=== PATIENT | male | born 1965 | race Caucasian/White ===

== ENCOUNTER 2017-08-12 08:28 | Inpatient (IN) | payer BC ==
[2017-08-12] MEDS ORDERED: Adenosine 6 MG/2 ML VIAL ONE (08:37)
[2017-08-12 09:17] LABS: PTT 25.3 SEC (22.9-36.1); Prothrombin Time 12.4 SEC (12.0-14.7)
[2017-08-12] MEDS ORDERED: Aspirin 325 MG TAB ONE (09:26)
[2017-08-12 09:27] LABS: ALT (SGPT) 58 U/L (8-55); AST (SGOT) 38 U/L (5-34); Alkaline Phosphatase 45 U/L (40-150); Anion Gap 17 mmol/L (10-20); BUN (Urea Nitrogen) 18 mg/dL (8.4-25.7); Bilirubin, Total 0.5 mg/dL (0.2-1.2); CK (CPK) 116 U/L (30-200); Calc. Creatinine Clearance 0 mL/min (70-130); Calcium 10.7 mg/dL (7.8-10.44); Carbon Dioxide 25 mmol/L (22-29); Chloride 101 mmol/L (98-107); Estimated GFR-MDRD 72; Globulin 3.8 g/dL (2.4-3.5); Protein, Total 8.3 g/dL (6.0-8.3)
[2017-08-12 09:29] LABS: Troponin I 0.032 ng/mL (< 0.028)
--- NOTE | 2017-08-12 09:29 | RAD ---
SINGLE VIEW OF THE CHEST: Comparison: None. History: Chest pain, lightheadedness. FINDINGS: Single view of the chest shows a normal sized cardiomediastinal silhouette. There is no evidence of consolidation, mass, or pleural effusion. The bones are unremarkable. IMPRESSION: No evidence of acute cardiopulmonary disease. POS: [facility]
[2017-08-12 09:31] LABS: Hematocrit 44.3 % (42.0-52.0); Mean Platelet Volume 6.7 fL (7.4-10.4); Red Blood Cell (RBC) Count 4.36 mill/uL (4.70-6.10); White Blood Cell (WBC) Count 9.8 thou/uL (4.8-10.8)
[2017-08-12 09:34] LABS: #Basophils 0.2 thou/uL (0.0-0.2); #Eosinphils 0.1 thou/uL (0.0-0.7); #Monocytes 0.4 thou/uL (0.11-0.59); #Neutrophils 7.1 thou/uL (1.40-6.50); %Basophils 1.7 % (0.0-1.0); %Eosinophils 1.3 % (0.0-10.0); %Monocytes 4.4 % (0.0-10.0); Macrocytosis SLIGHT = 6-15 cells (100X) (0-5/hpf)
[2017-08-12 12:51] LABS: Troponin I 0.558 ng/mL (< 0.028)
[2017-08-12 13:05] VITALS: BMI 28.1
[2017-08-12] MEDS ORDERED: Acetaminophen 325 MG TAB PO PRN (14:35)
[2017-08-12] MEDS ORDERED: Lorazepam 1 MG TAB PO PRN (14:35)
[2017-08-12] MEDS ORDERED: Labetalol HCl 100 MG/20 ML VIAL SLOW IVP PRN (14:35)
[2017-08-12] MEDS ORDERED: Milk Of Magnesia 30 ML UDCUP PO PRN (14:35)
[2017-08-12] MEDS ORDERED: Mag-Al 1200 mg/1200 mg/30 ML UDCUP PO PRN (14:35)
[2017-08-12 15:41] LABS: Troponin I 1.123 ng/mL (< 0.028)
[2017-08-12] MEDS ORDERED: Nitroglycerin 2% Ointment 1 INCH/1 GM Packet TOP SCH (18:00)
--- NOTE | 2017-08-12 20:17 | HP ---
PRIMARY CARE PHYSICIAN: Kenyon Yuan M.D. CHIEF COMPLAINT: Feeling dizzy and sweating. HISTORY OF PRESET ILLNESS: Mr. Shaver is a pleasant 52-year-old gentleman that has a history of hyp ertension. He was in his usual state of health until yesterday. He says that when he got up in the morning, he felt dizzy, sweaty, and little bit lightheaded. He says that he laid down and put a co ld rag over his head and says after about 5 or 10 minutes, the feeling subsided and he says then he got up, got dressed and went to work and had no other problems. He says then again this morning whe n he woke up, he once again felt dizzy and a bit lightheaded and felt like his heart was racing. He said he did the same thing, he laid down and tried to be still for a while; however, the feeling craig bsided, but did not go away completely. He went ahead and got dressed and went to work, however. Danni dent says that when he got to work, he was feeling bad and his symptoms got progressively worse and wor se. He went to see the nurse on duty, but she was not there. He says that he began feeling like he was going to pass out, so he drove himself home and he says that he and sounds like his went t o the [facility]. He says that his blood pressure was undetectable, so they sent him t o the [facility] emergency room in [place]. There they did an EKG and found that his heart rate was around 220. They gave him \\\\"some of medication which was adenosine\\\\" and says that after that he began to feel much better and in fact now, he feels back to his normal self. During this t veronica, he did complain of some tightness in his chest and some soreness and numbness in his left arm. He denies having any shortness of breath, no nausea, or vomiting. He says that the episode today l asted about 3 hours. It is started about 5 a.m. when he got up and continued until about 8 a.m. in the morning. REVIEW OF SYSTEM: Constitutional: There has been no fever, chills, no night sweats, no weight loss . HEENT: He has had no headache, but he has had dizziness. No visual changes, no sore throat, rhi norrhea, neck pain, no adenopathy. Pulmonary: No hemoptysis, no cough, no wheezing. Cardiovascula r: As the history of present illness. Gastrointestinal: No abdominal pain, no nausea, no vomiting , no change in bowels. Genitourinary: No urinary frequency, hematuria, no hesitancy. Neurologic: No focal weakness, numbness, no seizures. Psychiatric: No symptoms of anxiety or depression. Ski n and Integument: No skin changes. No rash. PAST MEDICAL HISTORY: Significant for hypertension. PAST SURGICAL HISTORY: Negative. ALLERGIES: No known drug allergies. FAMILY HISTORY: He says his father has everything \\\\"including heart disease, diabetes mellitus and cerebrovascular disease.\\\\" SOCIAL HISTORY: He says he drinks anywhere from 5 to 8 beers a day. He smokes 2 packs a day since he was 19 and therefore, it has been 30 years. He is and has 3 children. MEDICATIONS: Include metoprolol extended release 50 mg daily and hydrochlorothiazide 25 mg a day. PHYSICAL EXAMINATION: GENERAL: Currently he is alert and oriented. He appears to be in no acute distress. VITAL SIGNS: Blood pressure is 175/97, heart rate 64, respiratory rate of 18, temperature is 97.8. HEENT: Pupils are equal, round, and reactive. Extraocular muscles are intact. Sclerae are anicter ic. Throat: No erythema, no exudates. NECK: No adenopathy, no bruits. LUNGS: Clear to auscultation. There was no wheezing, no rales. CARDIOVASCULAR: He has a normal S1 and S2. There is no S3 or S4. No murmurs, clicks, no rubs. ABDOMEN: Soft, nontender, nondistended. Positive for bowel sound. There is no rebound or guarding . EXTREMITIES: There is no clubbing, cyanosis, no edema. NEUROLOGIC: Nonfocal. LABORATORY RESULTS: White blood cell count is 9.8, hemoglobin 16, hematocrit is 44.3, platelet coun t is 252. INR 0.9. Sodium 138, potassium 4.5, chloride is 101, CO2 is 25, BUN is 18, creatinine 1. 08, glucose is 151, calcium is 10.7. AST is 38, ALT is 58, and troponin is 0.032 initially and then 0.558. IMAGING: EKG initially was appeared to be sinus tachycardia at the rate of 220; after adenosine was given, his EKG with atrial fibrillation with a heart rate of 155. He was placed on Cardizem for a short while and is now sinus rhythm at the rate of 68 and he has some nonspecific ST wave changes. ASSESSMENT: 1. This is a 52-year-old gentleman that presented to the emergency room with dizziness and sweating as well as some chest tightness. He was found to be initially supraventricular tachycardia and then atrial fibrillation. It also noted that he has elevated troponin which is more than quadruple sinc e his admission. Due to the patient's heavy smoking history and he also has another risk factor inc luding family history and the fact that he is a male over 50, it is possible that this could be an a cute coronary syndrome resulting into the arrhythmia or it could be that the patient has a primary a rrhythmia and causing a demand ischemia; however, at this point it is impossible to tell. He will b e admitted and started on nitrates as well as aspirin and will place him on low dose beta analilia. Cardiology will be consulted to determine the etiology of his heart disease. I suspect he will need an echo possibly cardiac catheterization as well. 2. For his tobacco abuse, he has been instructed briefly on smoking cessation. I offered Wellbutri n; however, he refused this and says he can take care of this on his own. Given the fact that he is possibly in an acute coronary syndrome, we will hold off on nicotine replacement at this time. 3. The patient's blood pressure is uncontrolled. It is unclear whether or not his current blood pr essure medication is sufficient. We will continue to monitor his trend and we likely may need to ad d an additional antihypertensive as well.
--- NOTE | 2017-08-12 20:24 | CON ---
DATE OF CONSULTATION: 08/12/2017 REASON FOR CONSULTATION: Tachycardia, increased troponin level. HISTORY OF PRESENT ILLNESS: Mr. Ashkan Shaver is a gentleman who has been having lightheaded episode s for 2 days. Yesterday, he felt lightheaded for a relatively prolonged time at rest, but that reso lved, but today he noticed when he tried to get up and around, he felt extremely lightheaded. He we nt ahead and went to work and he went to go see the nurse, but she was not there. [facility] There his blood pressure was slow, they could not measure it and his hea rt rate was so fast, it could be counted. He was sent to the emergency room where his heart rate wa s 220 beats a minute. He was given adenosine intravenously which has slowed down the rate and looke d like it probably atrial flutter with 1:1 conduction. The heart rate went up at least 240 beats a minute and later converted to sinus rhythm but did have some transient atrial fibrillation as well. The patient is currently asymptomatic, doing well. The patient states he wants to go home now. He did not have chest pain or tightness with this. PAST MEDICAL HISTORY: Negative for any cardiac problems other than high blood pressure. Otherwise, the patient has been active and healthy, continuing to work. MEDICATIONS: In home including hydrochlorothiazide 25 mg a day, metoprolol XL 50 mg a day. Patient does continue to smoke as mentioned. SOCIAL HISTORY: Positive for smoking. FAMILY HISTORY: Father had heart disease and coronary disease at a relatively young age. REVIEW OF SYSTEMS: CONSTITUTIONAL: No significant weight gain or loss. VISION: No changes. HEARING: No changes. PULMONARY: No cough or wheezing. GASTROINTESTINAL: No nausea, vomiting, diarrhea. SKIN: No rashes. NEUROLOGIC: No unilateral weakness or numbness. PSYCHIATRIC: No unusual depression or anxiety. HEMATOLOGIC: No unusual bruising. GENITOURINARY: No burning with urination. PHYSICAL EXAMINATION: GENERAL: He is a pleasant, healthy appearing middle-aged man, in no distress, wants to go home. VITAL SIGNS: Blood pressure high 194/95, pulse 58 regular. LUNGS: He has some expiratory wheezing. CARDIAC: Normal S1, normal S2. ABDOMEN: Soft, nontender. EXTREMITIES: No clubbing or cyanosis. There is no edema. PERTINENT LABORATORY: Creatinine is normal. Troponin went to a 0.032 to 0.558 to 1.123. EKGs revealed narrow complex tachycardia, one with rate of 220, but it accelerates up to 240 at one time, later he had some atrial fibrillation with a rate of 140. ASSESSMENT: 1. Supraventricular tachycardia, possibly atrial flutter. 2. Paroxysmal atrial fibrillation. 3. Echo is normal. 4. Hypertension. PLAN: 1. Consulted Dr. Brownlee, consideration for an ablation. 2. We will hold off on beta-blockers due to the wheezing. 3. Stress testing to be done, hopefully done tomorrow morning. Hopefully, he can still have the fl utter ablation in the afternoon.
[2017-08-12] MEDS ORDERED: Metoprolol Tartrate 25 MG TAB PO SCH (21:00)
[2017-08-12] MEDS: Nitroglycerin 2% Ointment 1 INCH/1 GM Packet TOP SCH (21:09)
--- NOTE | 2017-08-13 06:02 | CON ---
DATE OF CONSULTATION: 08/12/2017 ELECTROPHYSIOLOGY CONSULTATION REPORT REFERRING PHYSICIAN: Kurtis Young M.D. I am seeing Mr. Shaver at our [facility] telemetry floor as an electrophysiology professional housing consultant. His problems are: 1. Presentation with rapid narrow complex tachycardia with adenosine response consistent with typical atrial flutter with intermittent 1:1 conduction. A. Short run of atrial fibrillation also seen with subsequent conversion to sinus rhythm. 2. A 2D echo from 08/12/2017 reveals LVEF 50 to 55%. 3. Elevated troponin up to 1.123 noted. 4. Coronary artery risk factors. A. History of smoking. ALLERGIES: None noted. MEDICATIONS: At home including hydrochlorothiazide, metoprolol succinate 50 mg daily. SUBJECTIVE: Mr. Shaver is here with severe dizziness, lightheadedness near syncope, extreme weakness. In the ER, he was evaluated and found to be in a rapid narrow complex tachycardia, adenosine since I just slowed him down and then the tachycardia recurred and underlying flutter waves were observed during adenosine administration. He also did convert to atrial fibrillation, but eventually, then the rhythm was terminated. He does not have bleeding issues, no true angina-like symptoms. No fevers, chills, cough, rest of the 12-point review of systems unremarkable. PAST MEDICAL HISTORY: As above. No prior history of heart disease or heart attacks. He was treated for hypertension though. SOCIAL HISTORY: The patient is a smoker. He denies ETOH or drug use. 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 FAMILY HISTORY: Noncontributory. OBJECTIVE DATA: VITAL SIGNS: Blood pressure is markedly hypertensive, initially 159/120 mostly it is about 191/105. GENERAL: He is an alert and oriented man in no apparent distress. NECK: Supple. Jugular veins not distended. CHEST: Coarse without crackles. CARDIOVASCULAR: Heart sounds are regular to rate and rhythm. No murmur or gallop. ABDOMEN: Benign. Bowel sounds positive. EXTREMITIES: Lower extremities without edema, clubbing or cyanosis. Pulses are adequate. NEUROLOGIC: The patient is nonfocal. MUSCULOSKELETAL: No joint swelling or deformities. SKIN: Without rash. DATABASE: The initial presenting EKG is a rapid narrow complex SVT at rate of 218 beats per minute. Underlying flutter waves are visible. ST depression is seen in the inferolateral leads. Subsequent EKG and rhythm strips during adenosine reveal slowing of the heart rates with underlying flutter waves, which is likely typical in morphology noted after 6 mg of adenosine. The atrial flutter becomes 2:1, and then rapid rate occurs in 1:1 conduction. Variable heart rates are seen. There is an EKG with variable AV conduction with possible underlying flutter wave still present, cannot rule out atrial fibrillation at this time. The fourth EKG reveals sinus rhythm with rate of 68 beats per minute with nonspecific ST-T changes. LABORATORY DATA: Sodium 138, potassium 4.5, BUN 18, creatinine is 1.08. AST and ALT is 38 and 58. Troponin I is 0.32, 0.558 and 1.123. Globulin is 3.8. White count is 9.8, hemoglobin 16, platelet count is 252. ASSESSMENT AND PLAN: Mr. Shaver is a 52-year-old man with a prior history of heart disease who presented with lightheadedness, dizziness, and EKG was suggestive of atrial flutter with possible 1:1 atrioventricular conduction. He is now back in sinus rhythm and feeling better. He had a troponin bumped at 1.23, which is likely due to the fasting rapid heart rates sustaining over multiple hours. 1. I discussed the potential treatment options with him. We discussed the options for rhythm medication, rate controlling medications, but he would prefer more definitive treatment of his atrial flutter. Cavotricuspid isthmus ablation procedure, risks, benefits were all detailed to him. We also discussed the potential chance for additional flutter circuits in which case was still might use some medical therapy versus pulmonary venous isolation procedure could be considered as well. He understands and willing to proceed. 2. Hypertension markedly elevated, likely initiate FELI inhibitors, possible beta analilia therapy. 3. For now, hold off anticoagulation with recurrent atrial flutter is seen, consider anticoagulation as well. On the other hand, his CHADS VASC score so far is zero. 4. Elevated troponin likely related to the demand ischemia with rapid heart rates, further evaluation as per Dr. Young. We discussed the case with the patient, nurse, and Dr. Young. RADHA
[2017-08-13 06:25] LABS: Anion Gap 12 mmol/L (10-20); BUN (Urea Nitrogen) 22 mg/dL (8.4-25.7); Calc. Creatinine Clearance 115 mL/min (70-130); Calcium 9.7 mg/dL (7.8-10.44); Carbon Dioxide 28 mmol/L (22-29); Chloride 102 mmol/L (98-107); Cholesterol 238 mg/dl (< 200 Desired); Estimated GFR-MDRD 80; LDL Cholesterol, Calculated 144 mg/dL
[2017-08-13 06:32] LABS: #Basophils 0.1 thou/uL (0.0-0.2); #Eosinphils 0.2 thou/uL (0.0-0.7); #Lymphocytes 1.7 thou/uL (1.20-3.40); #Monocytes 0.9 thou/uL (0.11-0.59); %Basophils 0.9 % (0.0-1.0); %Eosinophils 3.2 % (0.0-10.0); %Lymphocytes 21.5 % (21.0-51.0); %Monocytes 10.9 % (0.0-10.0); Hematocrit 42.4 % (42.0-52.0); Mean Platelet Volume 7.3 fL (7.4-10.4); Red Blood Cell (RBC) Count 3.94 mill/uL (4.70-6.10); White Blood Cell (WBC) Count 7.8 thou/uL (4.8-10.8)
[2017-08-13 06:44] LABS: Macrocytosis MODERATE=16-30 cells (100X) (0-5/hpf)
[2017-08-13] MEDS ORDERED: Sodium Chloride 0.9% 10 ML ONE (07:18)
[2017-08-13] MEDS: Nitroglycerin 2% Ointment 1 INCH/1 GM Packet TOP SCH ×2 (07:18→14:58)
[2017-08-13] MEDS ORDERED: Enoxaparin Sodium 40 MG/0.4 ML SYRINGE SC SCH (09:00)
[2017-08-13] MEDS ORDERED: Midazolam HCl 2 mg/2 ml Vial ONE ×2 (09:02→09:20)
[2017-08-13] MEDS ORDERED: Fentanyl 100 MCG/2 ML VIAL ONE (09:04)
[2017-08-13] MEDS ORDERED: Heparin 10,000 UNITS/1 ML VIAL ONE (09:07)
[2017-08-13] MEDS ORDERED: Dexamethasone 20 MG/5 ML VIAL ONE (09:13)
[2017-08-13] MEDS ORDERED: Ondansetron HCl/PF 4 MG/2 ML Vial ONE (09:13)
[2017-08-13] MEDS ORDERED: Ketorolac Tromethamine 30 MG/ML VIAL ONE (09:13)
[2017-08-13] MEDS ORDERED: Propofol 200 MG/20 ML VIAL ONE (09:13)
[2017-08-13] MEDS ORDERED: Propofol 500 MG/50 ML VIAL ONE (09:35)
[2017-08-13] MEDS ORDERED: DOPamine 400 MG/D5W 250 ML 250 ML ONE (09:57)
[2017-08-13] MEDS ORDERED: Diprivan 20 ML ONE (10:14)
[2017-08-13] MEDS ORDERED: Promethazine HCl 25 MG/ML VIAL SLOW IVP PRN (10:42)
[2017-08-13] MEDS ORDERED: Promethazine HCl 25 MG/ML VIAL IM PRN (10:42)
[2017-08-13] MEDS ORDERED: Ondansetron HCl/PF 4 MG/2 ML Vial IVP PRN ×2 (10:42→12:10)
[2017-08-13] MEDS ORDERED: Nitroglycerin 0.4 MG TAB (25 Tab Bottle) SL PRN (12:10)
[2017-08-13] MEDS ORDERED: Mag-Al 1200 mg/1200 mg/30 ML UDCUP PO PRN (12:10)
[2017-08-13] MEDS ORDERED: Bisacodyl 10 MG SUPP PR PRN (12:10)
[2017-08-13] MEDS ORDERED: traMADol HCl 50 MG TAB PO PRN (12:10)
[2017-08-13] MEDS ORDERED: Temazepam 15 MG CAP PO PRN (12:10)
[2017-08-13] MEDS ORDERED: diphenhydrAMINE HCl 25 MG CAP PO PRN (12:10)
[2017-08-13] MEDS ORDERED: Bisacodyl 5 MG TAB PO PRN (12:10)
[2017-08-13] MEDS ORDERED: Silver Sulfadiazine 1% Cream 50 GM JAR TOP PRN (12:10)
[2017-08-13] MEDS: Aspirin 325 MG TAB PO SCH (12:52)
[2017-08-13] MEDS: Metoprolol Tartrate 25 MG TAB PO SCH ×2 (14:57→22:14)
--- NOTE | 2017-08-13 15:37 | PDOC.PN ---
- Subjective Encounter Start Date: 08/13/17 Encounter Start Time: 15:35 Mr. Shaver does not have any complaints. He is just returning to his room from going to smoke. - Objective Resuscitation Status: Resuscitation Status FULL:Full Resuscitation MAR Reviewed: Yes Vital Signs & Weight: Vital Signs (12 hours) Temp Pulse Resp BP BP BP Pulse Ox 08/13/17 15:05 97.7 F 101 H 16 154/90 H 08/13/17 12:54 96.7 F L 60 16 180/92 H 99 08/13/17 12:52 73 190/103 H 08/13/17 08:00 98.6 F 91 18 96 08/13/17 07:19 98.6 F 91 18 135/102 H 96 08/13/17 04:00 97.8 F 75 18 137/82 95 Weight Weight 206 lb 7 oz I&O: 08/12/17 08/13/17 08/14/17 06:59 06:59 06:59 Intake Total 240 Output Total 465 Balance -225 Result Diagrams: 08/13/17 05:24 08/13/17 05:24 Phys Exam - Physical Examination HEENT: PERRLA Respiratory: no wheezing, no rales, no rhonchi, clear to auscultation bilateral Cardiovascular: RRR, no significant murmur, no rub Gastrointestinal: soft, non-tender, positive bowel sounds Musculoskeletal: no edema Dx/Plan (1) Supraventricular tachycardia Code(s): I47.1 - SUPRAVENTRICULAR TACHYCARDIA Status: Acute (2) Tobacco abuse Code(s): Z72.0 - TOBACCO USE Status: Acute (3) Hypertension Code(s): I10 - ESSENTIAL (PRIMARY) HYPERTENSION Status: Acute - Plan * SVT- patient is s/p ablation- patient has been in sinus, but his heart rate has begun to climb a little * HTN- blood pressure has been elevated- Amlodipine was added by Cardiology * Discussed smoking cessation again, patient is not yet ready to quit * Monitor in the hospital overnight * Likely home tomorrow.
[2017-08-13] MEDS ORDERED: Metoprolol Tartrate 25 MG TAB PO SCH (21:00)
--- NOTE | 2017-08-13 21:00 | CCL ---
REFERRING PHYSICIAN: Armando Young M.D. REASON FOR PROCEDURE: The patient is a 52-year-old man with no prior cardiac history. History of smoking who presented with a rapid narrow complex tachycardia with adenosine revealing a typical atrial flutter waves underlying eventually terminated on diltiazem drip. He also had different cycle length tachycardia noted at times, but they are not as rapid as the atrial flutter which was to be 1:1 conducted. Here for cavotricuspid isthmus ablation. PROCEDURE: The patient received propofol for deep sedation. After adequate level of sedation achieved, a right femoral vein was prepped and draped and anesthetized using subcutaneous lidocaine and with a multipurpose needle and a vein was cannulated x2. Two 8 Mozambican sheaths were introduced through which a 7 Mozambican decapolar catheter was advanced to the right ventricle and right atrium, and eventually CS position. The basic EP study was obtained with these catheters. Measurements were as follows: Baseline rhythm is sinus rhythm, ND 135, QRS 90, QT 379, AH 108, HV 40 milliseconds. The patient was in sinus rhythm at baseline. Sinus node recovery time corrected was 224. The AV Wenckebach cycle is 240. Retrograde VA block cycle length was 400. No evidence of accessory pathway was demonstrated. The rapid atrial pacing, we were able to introduce atrial flutter at cycle length of 240 milliseconds. The CS 910 pacing demonstrated post-pacing interval close to the tachycardia cycle length. With further pacing, the typical appearing atrial flutter Disintegrated to atrial fibrillation. Amiodarone 150 mg was given and the procedure of the cavotricuspid isthmus ablation. During ablation, the rhythm terminated and sinus rhythm ensued. With CS 9/10 pacing, we achieved complete cavotricuspid isthmus block as demonstrated by progressively shortening transisthmus time measurements from the lateral side of the line to the lateral left atrium measured. The longest transisthmus times by the ablation line is 160 milliseconds. Following that, the induction of the atrial rhythm was attempted. No sustained atrial arrhythmia was induced. The cavotricuspid isthmus block persisted after IV dopamine challenge as well. CONCLUSION: 1. Successful induction of typical atrial flutter. 2. Successful cavotricuspid isthmus ablation eliminating the inducibility of the atrial flutter. 2. Persistent atrial fibrillation responding to a single IV amiodarone bolus was also seen. PLAN: Continue rate controlling agents. Consider anticoagulation if recurrent atrial fibrillation is seen. Also, consider Multaq or flecainide therapy for atrial fibrillation suppression. MTDD
[2017-08-14] MEDS ORDERED: Sodium Chloride 0.9% 10 ML ONE (04:48)
--- NOTE | 2017-08-14 07:50 | PRG ---
DATE OF SERVICE: 08/14/2017 HISTORY: Mr. Shaver he is doing okay today. He already is outside smoking. This was before 7:00 a .m. No chest pain or pressure. Feels well. PHYSICAL EXAMINATION: VITAL SIGNS: Blood pressure is high 185/99, pulse 73. LUNGS: Clear. CARDIAC: Normal S1 and S2. ASSESSMENT: 1. Status post ablation for atrial flutter. 2. Paroxysmal atrial fibrillation, CHADS-VASc score 1. 3. Hypertension, uncontrolled. 4. Continued tobacco dependence. PLAN: 1. Increase amlodipine to 10 mg daily. 2. Continue metoprolol 50 mg a day. 3. At this time anticoagulation will not be instituted. The patient will monitor his pulse, he eddie l get a pulse oximeter and see if he has any evidence of rapid heart rate. The patient with CHADS V ASc 1, it is not clear that the risk of anticoagulation would justify the potential benefit. 4. Will probably need further blood pressure medicine. I suspect he has been hypertensive for quit e some time. He will come back in the office and see me in a few weeks, maybe need to add FELI inhib itor or angiotensin receptor analilia if hypertension persists. At some point would like to do stres s testing. He did have a non-ST elevation infarction with a peak troponin of 1.1, which appeared to be almost certainly demand ischemia. He had prolonged episode of tachycardia over 200 beats a camille te for a couple of hours. 5. Hyperlipidemia with cholesterol 238, triglyceride 169, LDL 144. In the setting of smoking, at s ome point, I would recommend statin therapy, I actually will go ahead and institute that now. There does appear to be some question of compliance; however, hopefully the patient will take medicine. I think the biggest problem now is blood pressure control. We will add Rosuvastatin.
[2017-08-14] MEDS: Aspirin 325 MG TAB PO SCH (08:14)
[2017-08-14 09:22] VITALS: TEMP 97.6
[2017-08-14 10:27] VITALS: BP 187/96
--- NOTE | 2017-08-14 12:40 | DIS ---
DATE OF ADMISSION: 08/12/2017 DATE OF DISCHARGE: 08/14/2017 PRIMARY CARE PHYSICIAN: Kenyon Yuan M.D. DISCHARGE DISPOSITION: Home. PRIMARY DISCHARGE DIAGNOSES: 1. Supraventricular tachycardia. 2. Non-ST segment elevated myocardial infarction type 2 secondary to demand ischemia. 3. Hypertension. 4. Tobacco abuse. DISCHARGE MEDICATIONS: Include metoprolol XL 50 mg daily, hydrochlorothiazide 25 mg daily, aspirin 81 mg daily, Crestor 20 mg at bedtime, and amlodipine 10 mg daily. PROCEDURES DONE DURING ADMISSION: The patient had an echocardiogram in which the ejection fraction was estimated at 50%-55%. Left ventricular size was normal. There was no evidence of any valvular disease. The patient had an EP study done with successful induction of typical atrial flutter and a successful cavotricuspid isthmus ablation eliminating the atrial flutter. CODE STATUS: FULL CODE. ALLERGIES: No known drug allergies. HOSPITAL COURSE: Mr. Shaver is a pleasant 52-year-old gentleman who presented to the emergency room with complaints of feeling dizzy and lightheaded, sweaty as well as having some chest tightness as well. He was seen at [facility] where he is found to be in supraventricular tac hycardia with heart rate of 220. He was given adenosine and then placed on Cardizem where he conver canelo back to sinus rhythm. He was seen by Cardiology, had an echocardiogram which was negative and w as evaluated by Electrophysiology where he made the decision to undergo ablation. Medication was of fered to the patient, but he refused this. The patient underwent ablation and had an uneventful pos toperative course and was subsequently able to be discharged home in stable condition. He was couns eled extensively on smoking cessation as he has a history of heavy smoking abuse or tobacco abuse, b ca says that he was not quite ready to quit and his job offered him counseling and supplies that he requested.
[2017-08-15] MEDS ORDERED: Hydrochlorothiazide 25 MG TAB PO SCH (09:00)
== END 2017-08-14 10:51 | disposition home or self-care (01) | DRG 273 ==
LOC: SCSER 08:28 → OBSVTOIN 10:42 → 2SW 10:42 → 2NO 16:18
PROVIDERS: ADMIT Internal Medicine; ATTEND Internal Medicine
PROC: 02583ZZ Destruction of Conduction Mechanism, Percutaneous Approach (ICD-10-PCS; principal; 2017-08-14)
DX: I47.1 Supraventricular tachycardia (principal); I21.4 Non-ST elevation (NSTEMI) myocardial infarction; I24.8 Other forms of acute ischemic heart disease; I10 Essential (primary) hypertension; I48.92 Unspecified atrial flutter; I48.0 Paroxysmal atrial fibrillation; E78.5 Hyperlipidemia, unspecified; F17.210 Nicotine dependence, cigarettes, uncomplicated; Z83.3 Family history of diabetes mellitus; Z82.3 Family history of stroke; Z82.49 Family history of ischemic heart disease and other diseases of the circulatory system
CPT/HCPCS: 36415; 71010; 76942; 80048; 80053; 80061; 82550; 82553; 84484; 85025; 85610; 85730; 93005; 93010; 93306; 93613; 93623; 93653; 94760; 96374; 96375; A4216; C1730; C1769; J0153; J0282; J0360; J1100; J1265; J1644; J1885; J2250; J2405; J2704; J3010

== ENCOUNTER 2021-08-04 18:02 | Inpatient (IN) | payer BC ==
[2021-08-04 19:12] LABS: #Basophils 0.1 thou/uL (0.0-0.2); #Eosinphils 0.3 thou/uL (0.0-0.7); #Lymphocytes 2.3 thou/uL (1.20-3.40); #Monocytes 0.9 thou/uL (0.11-0.59); #Neutrophils 4.9 thou/uL (1.40-6.50); %Basophils 1.3 % (0.0-1.0); %Lymphocytes 27.2 % (21.0-51.0); %Monocytes 10.3 % (0.0-10.0); %Neutrophils 58.2 % (42.0-75.0); Hemoglobin 12.5 g/dL (14.0-18.0); Mean Corpuscular HGB CONC 35.7 g/dL (32.0-36.0); Mean Corpuscular Hemoglobin 36.8 pg (27.0-31.0); Mean Platelet Volume 7.4 fL (7.4-10.4); Platelet Count 268 thou/uL (130-400); RBC Distribution Width 11.6 % (11.5-14.5); Red Blood Cell (RBC) Count 3.41 mill/uL (4.70-6.10); White Blood Cell (WBC) Count 8.4 thou/uL (4.8-10.8)
[2021-08-04] MEDS ORDERED: Levalbuterol HCl 1.25 MG/0.5 ML NEB NEB SCH (19:15)
[2021-08-04] MEDS ORDERED: Sodium Chloride For Inhalation 0.9% 3 ML NEB ONE (19:48)
[2021-08-04 19:50] LABS: Acetaminophen Less than 6.0 mcg/mL (10.0-30.0); Alcohol 194 mg/dL (Less than 10); CK (CPK) 91 U/L (30-200); Magnesium 1.7 mg/dL (1.6-2.6); Salicylate Less than 8.0 mg/dL (15.0-30.0)
[2021-08-04 20:02] LABS: ALT (SGPT) 21 U/L (8-55); AST (SGOT) 18 U/L (5-34); Albumin 4.1 g/dL (3.5-5.0); Alkaline Phosphatase 35 U/L (40-110); Anion Gap 18 mmol/L (10-20); BUN (Urea Nitrogen) 15 mg/dL (8.4-25.7); Bilirubin, Total 0.3 mg/dL (0.2-1.2); Calc. Creatinine Clearance 0 mL/min (70-130); Calcium 9.2 mg/dL (7.8-10.44); Carbon Dioxide 22 mmol/L (22-29); Chloride 93 mmol/L (98-107); Globulin 3.3 g/dL (2.4-3.5); Glucose 98 mg/dL (70-105); Potassium 3.6 mmol/L (3.5-5.1); Protein, Total 7.4 g/dL (6.0-8.3); Sodium 129 mmol/L (136-145)
[2021-08-04] MEDS ORDERED: Magnesium 2 GM/50 ML BAG (IN WATER) ONE (21:22)
[2021-08-04] MEDS ORDERED: Morphine 4 MG/ML VIAL ONE (21:53)
[2021-08-04 22:08] LABS: Troponin I Less than 0.010 ng/mL (< 0.028)
[2021-08-04 22:53] LABS: SARS-CoV-2 NAA Rapid Test Not Detected (NotDetected)
[2021-08-04] MEDS ORDERED: Ondansetron PF 4 MG/2 ML Vial IVP PRN (23:03)
[2021-08-04] MEDS ORDERED: Acetaminophen 325 MG TAB PO PRN (23:03)
[2021-08-04] MEDS ORDERED: Lorazepam 2 MG/ML VIAL SLOW IVP PRN (23:10)
[2021-08-04] MEDS ORDERED: hydrALAZINE 20 MG/ML VIAL SLOW IVP PRN (23:14)
[2021-08-04] MEDS ORDERED: Folic Acid 1 MG TAB PO SCH (23:15)
[2021-08-04] MEDS ORDERED: Multivitamin W/ Minerals 1 TAB PO SCH (23:15)
[2021-08-04] MEDS ORDERED: Thiamine HCl 200 MG/2 ML VIAL SLOW IVP SCH (23:30)
[2021-08-04 23:47] VITALS: BMI 28.6
[2021-08-05 01:33] LABS: Troponin I Less than 0.010 ng/mL (< 0.028)
[2021-08-05 03:58] LABS: #Basophils 0.1 thou/uL (0.0-0.2); #Eosinphils 0.2 thou/uL (0.0-0.7); #Monocytes 0.7 thou/uL (0.11-0.59); #Neutrophils 3.3 thou/uL (1.40-6.50); %Basophils 1.1 % (0.0-1.0); %Eosinophils 3.2 % (0.0-10.0); %Monocytes 11.2 % (0.0-10.0); %Neutrophils 52.6 % (42.0-75.0); Hemoglobin 12.2 g/dL (14.0-18.0); Mean Corpuscular HGB CONC 34.8 g/dL (32.0-36.0); Mean Platelet Volume 7.4 fL (7.4-10.4); Platelet Count 247 thou/uL (130-400); RBC Distribution Width 11.8 % (11.5-14.5); Red Blood Cell (RBC) Count 3.38 mill/uL (4.70-6.10); White Blood Cell (WBC) Count 6.3 thou/uL (4.8-10.8)
[2021-08-05 04:18] LABS: Anion Gap 12 mmol/L (10-20); BUN (Urea Nitrogen) 12 mg/dL (8.4-25.7); Calc. Creatinine Clearance 138 mL/min (70-130); Calcium 8.9 mg/dL (7.8-10.44); Carbon Dioxide 23 mmol/L (22-29); Chloride 99 mmol/L (98-107); Glucose 94 mg/dL (70-105); Magnesium 1.9 mg/dL (1.6-2.6); Sodium 130 mmol/L (136-145)
[2021-08-05] MEDS: Aspirin 81 mg Enteric Coated Tablet PO SCH (09:08)
[2021-08-05] MEDS: Famotidine 20 MG TAB PO SCH ×2 (09:08→20:49)
[2021-08-05] MEDS: Multivitamin W/ Minerals 1 TAB PO SCH (09:08)
[2021-08-05] MEDS: Folic Acid 1 MG TAB PO SCH (09:08)
[2021-08-05] MEDS ORDERED: Thiamine 100 MG TAB PO SCH (09:15)
[2021-08-05] MEDS ORDERED: Magnesium 2 GM/50 ML 2 GM in Premix Bag 1 BAG IVPB SCH (11:15)
[2021-08-05] MEDS ORDERED: Lidocaine 1% (PF) 30 ML VIAL ONE (13:34)
[2021-08-05] MEDS ORDERED: CEFAZOLIN 1 GM VIAL ONE (13:34)
[2021-08-05] MEDS ORDERED: Gentamicin 80 MG/2 ML VIAL ONE (13:34)
[2021-08-05] MEDS ORDERED: Iopamidol 370 76% 50 ML VIAL FS ONE (15:15)
[2021-08-05] MEDS ORDERED: Fentanyl 100 MCG/2 ML VIAL ONE (15:53)
[2021-08-05] MEDS ORDERED: Midazolam HCl 2 mg/2 ml Vial ONE (15:53)
[2021-08-06] MEDS ORDERED: Dronedarone HCl 400 MG TAB PO SCH ×2 (01:45→09:00)
[2021-08-06] MEDS: CEFAZOLIN 2 GM in Premix Bag 1 BAG IVPB SCH ×2 (02:36→09:34)
[2021-08-06 05:31] LABS: #Basophils 0.1 thou/uL (0.0-0.2); #Eosinphils 0.2 thou/uL (0.0-0.7); #Lymphocytes 1.2 thou/uL (1.20-3.40); #Monocytes 0.7 thou/uL (0.11-0.59); #Neutrophils 4.1 thou/uL (1.40-6.50); %Eosinophils 2.7 % (0.0-10.0); %Lymphocytes 19.1 % (21.0-51.0); %Monocytes 10.5 % (0.0-10.0); %Neutrophils 66.8 % (42.0-75.0); Hemoglobin 11.7 g/dL (14.0-18.0); Mean Corpuscular HGB CONC 34.2 g/dL (32.0-36.0); Mean Corpuscular Hemoglobin 35.7 pg (27.0-31.0); Mean Platelet Volume 7.6 fL (7.4-10.4); Platelet Count 228 thou/uL (130-400); RBC Distribution Width 11.6 % (11.5-14.5); Red Blood Cell (RBC) Count 3.26 mill/uL (4.70-6.10); White Blood Cell (WBC) Count 6.2 thou/uL (4.8-10.8)
[2021-08-06 06:03] LABS: Anion Gap 12 mmol/L (10-20); BUN (Urea Nitrogen) 19 mg/dL (8.4-25.7); Calc. Creatinine Clearance 101 mL/min (70-130); Carbon Dioxide 25 mmol/L (22-29); Chloride 99 mmol/L (98-107); Glucose 93 mg/dL (70-105); Potassium 4.2 mmol/L (3.5-5.1); Sodium 132 mmol/L (136-145)
[2021-08-06] MEDS ORDERED: Enoxaparin Sodium 40 MG/0.4 ML SYRINGE SC SCH (09:00)
[2021-08-06] MEDS ORDERED: Losartan 25 MG TAB PO SCH (09:00)
[2021-08-06] MEDS ORDERED: Thiamine 100 MG TAB PO SCH (09:00)
[2021-08-06] MEDS ORDERED: Non-Formulary Item 1 EACH (Losartan Potassium [Cozaar] 50 MG Tab) PO SCH (09:00)
[2021-08-06] MEDS ORDERED: Amlodipine 10 MG TAB PO SCH (09:00)
[2021-08-06] MEDS ORDERED: Hydrochlorothiazide 25 MG TAB PO SCH (09:00)
[2021-08-06] MEDS ORDERED: Amlodipine 5 MG TAB PO SCH (09:00)
[2021-08-06] MEDS: Multivitamin W/ Minerals 1 TAB PO SCH (09:29)
[2021-08-06] MEDS: Folic Acid 1 MG TAB PO SCH (09:29)
[2021-08-06] MEDS: Aspirin 81 mg Enteric Coated Tablet PO SCH (09:29)
[2021-08-06] MEDS: Famotidine 20 MG TAB PO SCH (09:29)
[2021-08-06 12:26] VITALS: BP 134/86
[2021-08-06 12:27] VITALS: TEMP 98.3
[2021-08-06] MEDS ORDERED: Cephalexin 250 MG CAP PO SCH (18:00)
[2021-08-06] MEDS ORDERED: Rosuvastatin 10 MG TAB PO SCH (21:00)
== END 2021-08-06 14:31 | disposition home or self-care (01) | DRG 243 ==
LOC: ERS 18:02 → CCU 22:10 → 2NO 08-05 19:52
PROVIDERS: ADMIT Internal Medicine; ATTEND Internal Medicine
PROC: 0JH606Z Insertion of Pacemaker, Dual Chamber into Chest Subcutaneous Tissue and Fascia, Open Approach (ICD-10-PCS; principal; 2021-08-05)
PROC: 02H60JZ Insertion of Pacemaker Lead into Right Atrium, Open Approach (ICD-10-PCS; 2021-08-05)
PROC: 02HK0JZ Insertion of Pacemaker Lead into Right Ventricle, Open Approach (ICD-10-PCS; 2021-08-05)
DX: I49.5 Sick sinus syndrome (principal); E87.1 Hypo-osmolality and hyponatremia; I48.4 Atypical atrial flutter; Z20.822 Contact with and (suspected) exposure to COVID-19; I10 Essential (primary) hypertension; F10.129 Alcohol abuse with intoxication, unspecified; E78.5 Hyperlipidemia, unspecified; Z91.14 Patient's other noncompliance with medication regimen; Z79.899 Other long term (current) drug therapy; Z79.82 Long term (current) use of aspirin; F17.210 Nicotine dependence, cigarettes, uncomplicated; I48.0 Paroxysmal atrial fibrillation; E78.00 Pure hypercholesterolemia, unspecified
CPT/HCPCS: 33208; 36415; 71045; 75820; 76942; 80048; 80053; 80307; 82550; 83735; 83930; 83935; 84300; 84443; 84484; 85025; 92953; 93005; 93306; 99152; 99153; C1785; C1898; J0690; J1580; J2001; J2060; J2250; J2270; J3010; J3411; J3475; J7612; Q9967; U0002

== ENCOUNTER 2021-12-18 10:05 | Outpatient (CLI) | payer BC ==
[2021-12-18 11:16] LABS: Hemoglobin 12.5 g/dL (13.5-17.5); Mean Corpuscular Hemoglobin 34.3 pg (27.0-33.0); Mean Corpuscular Volume 101.1 fl (81.2-95.1); Mean Platelet Volume 10.7 fl (7.4-10.4); Platelet Count 241 10x3/uL (150-450); RBC Distribution Width 11.9 % (11.5-14.5); Red Blood Cell (RBC) Count 3.64 10x6/uL (4.32-5.72); White Blood Cell (WBC) Count 7.3 10x3/uL (3.5-10.5)
[2021-12-18 11:42] LABS: PTT 28.5 sec (22.0-33.0); Prothrombin Time 10.7 sec (9.5-12.1)
[2021-12-18 12:06] LABS: Anion Gap 15 mmol/L (10-20); BUN (Urea Nitrogen) 17 mg/dL (8.4-25.7); Calc. Creatinine Clearance 0 mL/min (70-130); Calcium 9.1 mg/dL (7.8-10.44); Carbon Dioxide 20 mmol/L (22-29); Chloride 105 mmol/L (98-107); Glucose 116 mg/dL (70-105); Sodium 135 mmol/L (136-145)
[2021-12-18 17:42] LABS: SARS-CoV-2 PCR by NAA Not Detected (NotDetected)
== END 2021-12-18 10:06 | disposition home or self-care (01) ==
LOC: LABBT 10:05
PROVIDERS: ATTEND Internal Medicine Cardiovascular Disease
DX: Z01.812 Encounter for preprocedural laboratory examination (principal); I48.0 Paroxysmal atrial fibrillation; Z20.822 Contact with and (suspected) exposure to COVID-19
CPT/HCPCS: 80048; 85027; 85610; 85730; U0003; U0005

== ENCOUNTER 2021-12-23 08:36 | Day surgery (SDC) | payer BC ==
[2021-12-12 12:04] VITALS: BMI 29.0
[2021-12-23] MEDS ORDERED: Heparin 10,000 UNITS/ 10 ML VIAL ONE (09:53)
[2021-12-23] MEDS ORDERED: Isoproterenol 0.2 MG/1 ML AMP ONE (09:53)
[2021-12-23] MEDS ORDERED: Heparin 25,000 units/D5W 500 ML ONE (09:53)
[2021-12-23] MEDS ORDERED: Furosemide 40 MG TAB PO PRN (10:49)
[2021-12-23] MEDS ORDERED: Potassium Chloride 20 MEQ TAB PO PRN (10:49)
[2021-12-23] MEDS ORDERED: Ketorolac Tromethamine 30 MG/ML VIAL IVP PRN (10:49)
[2021-12-23] MEDS ORDERED: Fentanyl 100 MCG/2 ML VIAL ONE ×2 (11:14→14:34)
[2021-12-23] MEDS ORDERED: Sucralfate 1 GM TAB PO SCH (11:30)
[2021-12-23] MEDS ORDERED: Lidocaine 1% PF 5 ML VIAL ONE (11:36)
[2021-12-23] MEDS ORDERED: PHENYLEPHRINE-NS 100 MCG/ML 10 ML SYRINGE ONE (11:36)
[2021-12-23] MEDS ORDERED: Rocuronium Bromide 10 MG/ML (10ML VIAL) ONE (11:36)
[2021-12-23] MEDS ORDERED: Vecuronium 10 MG VIAL ONE (11:36)
[2021-12-23] MEDS ORDERED: Ondansetron PF 4 MG/2 ML Vial ONE (11:36)
[2021-12-23] MEDS ORDERED: ePHEDrine 50 MG/ML VIAL ONE (11:36)
[2021-12-23] MEDS ORDERED: PROPOFOL 200 MG/20 ML VIAL ONE (11:36)
[2021-12-23] MEDS ORDERED: SUGAMMADEX SODIUM 200 MG/2 ML VIAL ONE (14:26)
[2021-12-23] MEDS ORDERED: Protamine Sulfate 50 MG/5 ML VIAL ONE ×2 (14:26)
== END 2021-12-23 18:50 | disposition home or self-care (01) ==
LOC: SDC 08:36
PROVIDERS: ATTEND Internal Medicine Cardiovascular Disease
PROC: 02583ZZ Destruction of Conduction Mechanism, Percutaneous Approach (ICD-10-PCS; principal; 2021-12-23)
PROC: B244ZZZ Ultrasonography of Right Heart (ICD-10-PCS; principal; 2021-12-23)
PROC: 4A0234Z Measurement of Cardiac Electrical Activity, Percutaneous Approach (ICD-10-PCS; principal; 2021-12-23)
PROC: 4A023FZ Measurement of Cardiac Rhythm, Percutaneous Approach (ICD-10-PCS; principal; 2021-12-23)
PROC: 02K83ZZ Map Conduction Mechanism, Percutaneous Approach (ICD-10-PCS; principal; 2021-12-23)
DX: I48.0 Paroxysmal atrial fibrillation (principal); I48.4 Atypical atrial flutter; I10 Essential (primary) hypertension; F17.210 Nicotine dependence, cigarettes, uncomplicated; E78.5 Hyperlipidemia, unspecified; Z79.01 Long term (current) use of anticoagulants; Z79.899 Other long term (current) drug therapy; Z95.0 Presence of cardiac pacemaker
CPT/HCPCS: 85347; 93005; 93613; 93656; 93662; C1732; C1759; C1776; J1644; J2405; J2704; J2720; J3010; J3490

== ENCOUNTER 2022-04-25 09:49 | Outpatient (CLI) | payer BC ==
[2022-04-25 11:32] LABS: Hemoglobin 12.4 g/dL (13.5-17.5); Mean Corpuscular HGB CONC 35.1 g/dL (32.0-36.0); Mean Corpuscular Hemoglobin 34.5 pg (27.0-33.0); Mean Corpuscular Volume 98.3 fl (81.2-95.1); Mean Platelet Volume 10.3 fl (7.4-10.4); Platelet Count 258 10x3/uL (150-450); RBC Distribution Width 12.3 % (11.5-14.5); Red Blood Cell (RBC) Count 3.59 10x6/uL (4.32-5.72); White Blood Cell (WBC) Count 9.1 10x3/uL (3.5-10.5)
[2022-04-25 11:33] LABS: Anion Gap 17 mmol/L (10-20); BUN (Urea Nitrogen) 20 mg/dL (8.4-25.7); Calc. Creatinine Clearance 0 mL/min (70-130); Calcium 9.6 mg/dL (7.8-10.44); Carbon Dioxide 23 mmol/L (22-29); Chloride 99 mmol/L (98-107); Glucose 171 mg/dL (70-105); Potassium 5.4 mmol/L (3.5-5.1); Sodium 134 mmol/L (136-145)
[2022-04-25 11:36] LABS: INR-International Normal Ratio 1.4; PTT 40.8 sec (22.0-33.0); Prothrombin Time 14.6 sec (9.5-12.1)
== END 2022-04-25 09:50 | disposition home or self-care (01) ==
LOC: LABBT 09:49
PROVIDERS: ATTEND Internal Medicine Cardiovascular Disease
DX: Z01.812 Encounter for preprocedural laboratory examination (principal); I48.4 Atypical atrial flutter; Z20.822 Contact with and (suspected) exposure to COVID-19
CPT/HCPCS: 80048; 85027; 85610; 85730; U0003; U0005

== ENCOUNTER 2022-04-30 05:43 | Day surgery (SDC) | payer BC ==
[2022-04-28 10:38] VITALS: BMI 27.6
[2022-04-30] MEDS ORDERED: Protamine Sulfate 50 MG/5 ML VIAL ONE ×2 (06:49→10:00)
[2022-04-30] MEDS ORDERED: Heparin 25,000 units/D5W 500 ML ONE (06:49)
[2022-04-30] MEDS ORDERED: Isoproterenol 0.2 MG/1 ML AMP ONE (06:49)
[2022-04-30] MEDS ORDERED: Heparin 10,000 UNITS/ 10 ML VIAL ONE (06:49)
[2022-04-30] MEDS ORDERED: Midazolam HCl 2 mg/2 ml Vial ONE (07:39)
[2022-04-30] MEDS ORDERED: Fentanyl 100 MCG/2 ML VIAL ONE ×2 (07:40→10:14)
[2022-04-30] MEDS ORDERED: SUGAMMADEX SODIUM 200 MG/2 ML VIAL ONE (09:39)
[2022-04-30] MEDS ORDERED: fentaNYL Citrate/PF 100 MCG/2 ML SYRINGE ONE (12:49)
== END 2022-04-30 15:04 | disposition home or self-care (01) ==
LOC: SDC 05:43
PROVIDERS: ATTEND Internal Medicine Cardiovascular Disease
PROC: B244ZZ3 Ultrasonography of Right Heart, Intravascular (ICD-10-PCS; principal; 2022-04-30)
PROC: 02583ZZ Destruction of Conduction Mechanism, Percutaneous Approach (ICD-10-PCS; principal; 2022-04-30)
PROC: 4A0234Z Measurement of Cardiac Electrical Activity, Percutaneous Approach (ICD-10-PCS; principal; 2022-04-30)
PROC: 4A023FZ Measurement of Cardiac Rhythm, Percutaneous Approach (ICD-10-PCS; principal; 2022-04-30)
PROC: 02K83ZZ Map Conduction Mechanism, Percutaneous Approach (ICD-10-PCS; principal; 2022-04-30)
DX: I48.4 Atypical atrial flutter (principal); I51.7 Cardiomegaly; Z79.01 Long term (current) use of anticoagulants; Z79.899 Other long term (current) drug therapy; Z95.0 Presence of cardiac pacemaker; Z98.890 Other specified postprocedural states
CPT/HCPCS: 85347; 93005; 93613; 93622; 93623; 93656; 93657; 93662; C1730; C1732; C1759; C1760; J1644; J2250; J2720; J3010

== ENCOUNTER 2022-06-02 12:22 | Outpatient (CLI) | payer BC | END 2022-06-02 12:23 | disposition home or self-care (01) | LOC: SCSRAD 12:22 | PROVIDERS: ATTEND Family Medicine | DX: S22.000D Wedge compression fracture of unspecified thoracic vertebra, subsequent encounter for fracture with routine healing (principal) | CPT/HCPCS: 71046 ==

== ENCOUNTER 2022-06-04 07:44 | Outpatient (CLI) | payer BC | END 2022-06-04 07:45 | disposition home or self-care (01) | LOC: BICMAMMO 07:44 | PROVIDERS: ATTEND Family Medicine | DX: M80.00XD Age-related osteoporosis with current pathological fracture, unspecified site, subsequent encounter for fracture with routine healing (principal); M85.88 Other specified disorders of bone density and structure, other site | CPT/HCPCS: 77080 ==